=== PATIENT | female | born 1950 | race Caucasian/White ===

== ENCOUNTER → 2023-04-21 06:33 | Outpatient (REF) | payer MEDICARE, OTHER, SELFPAY | LOC: RAD 06:33 | PROVIDERS: ATTENDING PHYSICIAN Internal Medicine | DX: I71.40 Abdominal aortic aneurysm, without rupture, unspecified (principal) | CPT/HCPCS: 76770 ==

== ENCOUNTER 2023-05-24 16:41 | Emergency (ER) | payer MEDICARE, OTHER, SELFPAY ==
[2023-05-24 16:50] VITALS: BP 136/88
[2023-05-24 17:30] LABS: % Basophils 1.3 % (0-2); % Eosinophils 4.1 % (0-6); % Immature Granulocytes 0.1 % (0-0.5); % Monocytes 9.5 % (1.7-9.3); Absolute Basophils 0.1 10^3/uL (0-0.2); Absolute Eosinophils 0.3 10^3/uL (0-0.7); Absolute Lymphocytes 2.1 10^3/uL (1.2-3.4); Absolute Monocytes 0.7 10^3/uL (0.1-0.6); Absolute Neutrophils 3.7 10^3/uL (1.4-6.5); Hemoglobin 14.9 g/dL (12.0-16.0); Mean Corp Hgb Conc. 35.5 g/dL (33.0-37.0); Mean Corpuscular Volume 92.9 fL (81.0-99.0); Mean Platelet Volume 9.5 fL (7.4-10.4); Nucleated Red Blood Cells % 0 %; Platelet Count 297 10^3/uL (130-400); Red Blood Cell Count 4.52 10^6/uL (4.20-5.40); Red Cell Dist. Width 12.2 % (11.5-14.5); White Blood Cell Count 6.8 10^3/uL (4.8-10.8)
[2023-05-24 17:31] LABS: Urine Albumin Negative (Neg - Trace); Urine Bilirubin Negative (Negative); Urine Character Slightly Cloudy (Clear); Urine Color Yellow; Urine Glucose Negative (Negative); Urine Ketone Negative (Negative); Urine Leukocyte 1+ (Negative); Urine Nitrite Negative (Negative); Urine Occult Blood 1+ (Negative); Urine Specific Gravity 1.025 (<1.030); Urine Urobilinogen Negative (Neg - 1+)
[2023-05-24 17:44] LABS: ALT (SGPT) 16 U/L (0-35); AST (SGOT) 22 U/L (14-36); Albumin 4.4 g/dl (3.5-5.0); Alkaline Phosphatase 80 U/L (38-126); Blood Urea Nitrogen 22 mg/dl (7-17); Calcium 9.5 mg/dl (8.4-10.2); Carbon Dioxide 22 mmol/L (22-30); Chloride 108 mmol/L (98-107); Glucose 109 mg/dl (70-99); Potassium 3.9 mmol/L (3.5-5.1); Sodium 136 mmol/L (135-145); Total Bilirubin 0.5 mg/dl (0.2-1.3); Total Protein 7.2 g/dl (6.3-8.2); eGFR > 60.00
[2023-05-24 17:55] LABS: Urine Bacteria Moderate (Negative); Urine Squamous Cell >30 /LPF (Few)
[2023-05-24 18:25] VITALS: BMI 22.4
[2023-05-24 18:29] VITALS: BP 134/68
[2023-05-24 19:00] VITALS: BP 143/62
--- NOTE | 2023-05-24 19:14 | ED.GENMED ---
History of Present Illness
<Latonia Nobles PA-C - Last Filed: 05/27/23 11:07>
General
Chief Complaint: Back Pain
Source: patient
Exam Limitations: none
Time Seen by Provider: 05/24/23 19:05
Nursing documentation reviewed up to this point in time: agreed with
Travel History
Have you had any contact with someone who has COVID-19?: No
Do you have any symptoms of coronavirus? Fever > 100 degrees, chills, cough, shortness of breath, sore throat, loss of taste or smell, muscle aches, or headache?: No
History of Present Illness
History of Present Illness:
73-year-old female with past medical history of hypertension, presenting to the ER today with right-sided back pain that radiates to the right upper and right lower abdominal quadrants. Patient states that her pain started a few days ago and it was
mild, but has been getting progressively worse as the days persisted. Pain is worse with movement. Patient states she nausea with this but no vomiting. Patient has a normal appetite. Patient went to her doctor's office today, where they did a
urinalysis which revealed microscopic hematuria as well as crystals. Patient does not have iman hematuria. Patient does not have dysuria. Patient does not have vomiting. Patient denies dizziness, chest pain, shortness of breath. Patient denies
recent surgeries. Patient denies recent hospitalizations. Patient does take a baby aspirin daily, however takes no anticoagulation.
Past History
<Latonia Nobles PA-C - Last Filed: 05/27/23 11:07>
Past History
ED Past Medical History: CVA (Questionable old CVA seen on previous CT scan), HTN, Valvular disease and Other
ED Past Surgical History: None
Social History
Tobacco: Smoker
Alcohol: None
Drug: None
Personal: Single
Living: with family
Review of Systems
<Latonia Nobles PA-C - Last Filed: 05/27/23 11:07>
Review of Systems
All Other Systems: ROS reviewed and negative except as documented in HPI and ROS
Phy Exam
<Latonia Nobles PA-C - Last Filed: 05/27/23 11:07>
Physical Exam
Physical Exam:
Vitals: Patient vital signs are stable, patient is afebrile
General: Patient is well-appearing no acute distress
Head: Normocephalic, atraumatic
Skin: warm and dry, no rashes or lesions
Cardiac: Regular rate and rhythm, no murmurs
Pulm: Normal respiratory effort
Abdomen: Abdomen soft nontender, no tenderness to palpation. Significant positive CVA tenderness on the right. No palpable masses, no rebound tenderness.
Musculoskeletal: No midline spinal tenderness on the back.
Neuro: CN II-XII intact, AAOx3.
Course
<Latonia Nobles PA-C - Last Filed: 05/27/23 11:07>
Orders/Labs/Results
Orders:
Orders
05/24/23 16:57
Complete Blood Count/With Diff Urgent
Comprehensive Metabolic Panel Urgent
Lipase Urgent
Comment: ADD ON
05/24/23 17:15
Urinalysis Reflex To Culture Urgent
Date Specimen was Collected: 05/24/23
Time Specimen was Collected: 16:53
Urine Microscopic Reflex Cult Urgent
Urine Culture Urgent
SYDNI Source: U
Specimen Description:
Date Specimen was Collected: 05/24/23
Time Specimen was Collected: 16:53
05/24/23 19:10
CT Abd/pel Without Iv Or Oral Urgent
Comment:
Reason For Exam: right flank pain
Ketorolac [Toradol] 15 mg IV NOW STA
Ondansetron Injectable [Zofran] 4 mg IV NOW STA
05/24/23 19:18
0.9% Sodium Chloride 500 ml [Nss] 500 ml IV BOLUS
05/24/23 19:23
Ketorolac [Toradol] 15 mg .ROUTE .STK-MED ONE
Ondansetron Injectable [Zofran] 4 mg .ROUTE .STK-MED ONE
05/24/23 19:57
US Abdomen Limited Urgent
Comment:
Reason For Exam: right uq pain. evaluiate gb
05/24/23 19:58
Add On- LAB Urgent
Tests Added?: lipase
05/24/23 22:38
Dexamethasone Sod Phosphate [Decadron] 4 mg IV NOW STA
Abnormal Lab Results
05/24/23 05/24/23
16:57 17:15
MCH 33.0 H pg
(27.0-31.0)
Absolute Monos (auto) 0.7 H 10^3/uL
(0.1-0.6)
Monocytes % 9.5 H %
(1.7-9.3)
Chloride 108 H mmol/L
(98-107)
BUN 22 H mg/dl
(7-17)
Glucose 109 H mg/dl
(70-99)
Ur Occult Blood Reflex 1+ A
(Negative)
Leukocyte Esterase Rfl 1+ A
(Negative)
Urine RBC 3-6 A /HPF
(0-2)
Urine Bacteria (Reflex) Moderate A
(Negative)
05/24/23 16:57
05/24/23 16:57
Vital Signs
Initial and Last Documented VS:
Initial Vital Signs
Temp Pulse Resp BP Pulse Ox
98.2 F 62 16 136/88 98
05/24/23 16:50 05/24/23 16:50 05/24/23 16:50 05/24/23 16:50 05/24/23 16:50
Last Documented Vital Signs
Temp Pulse Resp BP Pulse Ox
98.2 F 67 20 114/62 96
05/24/23 16:50 05/24/23 22:30 05/24/23 22:30 05/24/23 20:45 05/24/23 22:15
<Servando Zaidi MD - Last Filed: 05/24/23 23:00>
Orders/Labs/Results
Orders:
Orders
05/24/23 16:57
Complete Blood Count/With Diff Urgent
Comprehensive Metabolic Panel Urgent
Lipase Urgent
Comment: ADD ON
05/24/23 17:15
Urinalysis Reflex To Culture Urgent
Date Specimen was Collected: 05/24/23
Time Specimen was Collected: 16:53
Urine Microscopic Reflex Cult Urgent
Urine Culture Urgent
SYDNI Source: U
Specimen Description:
Date Specimen was Collected: 05/24/23
Time Specimen was Collected: 16:53
05/24/23 19:10
CT Abd/pel Without Iv Or Oral Urgent
Comment:
Reason For Exam: right flank pain
Ketorolac [Toradol] 15 mg IV NOW STA
Ondansetron Injectable [Zofran] 4 mg IV NOW STA
05/24/23 19:18
0.9% Sodium Chloride 500 ml [Nss] 500 ml IV BOLUS
05/24/23 19:23
Ketorolac [Toradol] 15 mg .ROUTE .STK-MED ONE
Ondansetron Injectable [Zofran] 4 mg .ROUTE .STK-MED ONE
05/24/23 19:57
US Abdomen Limited Urgent
Comment:
Reason For Exam: right uq pain. evaluiate gb
05/24/23 19:58
Add On- LAB Urgent
Tests Added?: lipase
05/24/23 22:38
Dexamethasone Sod Phosphate [Decadron] 4 mg IV NOW STA
Abnormal Lab Results
05/24/23 05/24/23
16:57 17:15
MCH 33.0 H pg
(27.0-31.0)
Absolute Monos (auto) 0.7 H 10^3/uL
(0.1-0.6)
Monocytes % 9.5 H %
(1.7-9.3)
Chloride 108 H mmol/L
(98-107)
BUN 22 H mg/dl
(7-17)
Glucose 109 H mg/dl
(70-99)
Ur Occult Blood Reflex 1+ A
(Negative)
Leukocyte Esterase Rfl 1+ A
(Negative)
Urine RBC 3-6 A /HPF
(0-2)
Urine Bacteria (Reflex) Moderate A
(Negative)
05/24/23 16:57
05/24/23 16:57
Vital Signs
Initial and Last Documented VS:
Initial Vital Signs
Temp Pulse Resp BP Pulse Ox
98.2 F 62 16 136/88 98
05/24/23 16:50 05/24/23 16:50 05/24/23 16:50 05/24/23 16:50 05/24/23 16:50
Last Documented Vital Signs
Temp Pulse Resp BP Pulse Ox
98.2 F 67 20 114/62 96
05/24/23 16:50 05/24/23 22:30 05/24/23 22:30 05/24/23 20:45 05/24/23 22:15
<Latonia Nobles PA-C - Last Filed: 05/27/23 11:07>
MDM/Problems Addressed
Differential Diagnosis Includes:
Nephrolithiasis, pyelonephritis, cholecystitis, musculoskeletal sprain/strain, renal artery stenosis, renal artery thrombosis, spontaneous retroperitoneal hemorrhage,
MDM/Problems Addressed:
Flank pain, abdominal pain

Will start IV fluids, Toradol, Zofran, reassess. Will obtain CT of the abdomen pelvis
Chronic conditions affecting care: HTN
Acute Exacerbation and/or Progression of Chronic Illness: HTN
<Latonia Nobles PA-C - Last Filed: 05/27/23 11:07>
*Pulse Oximetry
Patient hypoxic: no
*Critical Care Note
Total Time (30-74mins, 75-104mins- exclusive of procedures): Not Applicable
Data Reviewed
Review of Other/Old Records Reveals: Records (Reviewed previous ER record from 03/05/2023) and Discharge Summary (No recent discharge summaries to review )
Source: patient and records
<Latonia Nobles PA-C - Last Filed: 05/27/23 11:07>
Patient Management
Escalation/DeEscalation of care consider admission/obs:
73-year-old female with past medical history of hypertension, presenting to the ER today with right-sided back pain that radiates to the right upper and right lower abdominal quadrants. Patient states that her pain started a few days ago and it was
mild, but has been getting progressively worse as the days persisted. Patient has no fevers or chills, dysuria. Patient obtained outpatient urinalysis for family doctor and was found to have hematuria. As well as crystals. Here emergency
department, patient's vitals are stable, she is afebrile. Patient's CT of the abdomen was negative for any obstructing calculi, and here US of the gallbladder did not show any evidence of cholecystitis.
ED Attending Note
<Latonia Nobles PA-C - Last Filed: 05/27/23 11:07>
-
Portions of this chart may have been created with voice recognition software.� Occasional wrong word or��sound alike� substitutions may have occurred due to the inherent limitations of voice recognition software.
<Servando Zaidi MD - Last Filed: 05/24/23 23:00>
ED Attending Note
Patient seen and examined by attending physician: Yes
I performed the substantive portion of visit, reviewed & personally made and approve the management plan that is documented in note by myself or GRETA.: Yes
ED Attending Note:
73-year-old female complaining of right back pain radiating to the right flank with some nausea. Had some blood in her urine. Has a history of low back pain that responded well to a Medrol Dosepak. That seemed to resolve but returned today with
doing some lifting earlier. No abdominal pain no fever no urinary symptoms no change in bowels.
GENERAL: Alert and oriented in no apparent distress
CARDIAC: Regular rate and rhythm without any obvious murmurs.
LUNGS: Clear breath sounds,normal
ABDOMEN: Soft, very minimal tenderness under the right lateral rib. No right upper quadrant tenderness. No epigastric tenderness. No rebound or guarding no mass or hernia. No CVA tenderness.
NEUROLOGICAL: Alert and oriented , grossly non-focal
SKIN: Warm and dry, no rash or lesion, no discoloration, skin intact.
MUSCULOSKELETAL: No edema,no deformity.Good color. He clearly is in pain with low back with sitting up
PSYCH: Normal and appropriate interaction.
Workup including evaluation of gallbladder kidney stones any infectious issue all negative. Neurologically stable. Ambulated to the bathroom without difficulty. Do not feel this is a pulmonary emboli. She has no shortness of breath or pleuritic
pain. Do not feel this is a dissection she is in no distress and has equal pulses. She does have a mildly positive urine although it appears contaminated. With her multiple medication allergies and antibiotic allergies we will not treat this
presumptively but wait for urine culture. She is comfortable with this approach. Request steroids for her low back which she says responds well
Discharge Plan
Departure
Patient Disposition: Home (Routine Discharge)
Date of Disposition: 05/24/23
Time of Disposition: 22:40
Patient with high blood pressure during this ER visit?: No
Discharge Problem:
Back pain
Instructions: Low Back Pain (DC), Upper Back Pain (DC), BLOOD PRESSURE
Prescriptions:
New
methylprednisolone [Medrol (Thierry)] 4 mg tablets,dose pack
4 mg PO DAILY Qty: 21 0RF
No Action
nadolol 40 MG tablet
40 mg PO DAILY
amlodipine 5 mg Tablet
5 mg PO DAILY
aspirin 81 mg Tablet
81 mg PO DAILY
cholecalciferol (vitamin D3) [Vitamin D3] 25 mcg (1,000 unit) Capsule
25 mcg PO DAILY
diazepam [Valium] 5 mg tablet
5 mg PO BID PRN (Reason: muscle spasm) Qty: 10 0RF
Referrals:
Santiago Prajapati Jr., DO [Family Provider] - Follow up in 2-3 days
Activity Restrictions/Additional Instructions:
Tylenol for pain
Recheck with increasing pain fever abdominal pain or any other concerning symptoms
Interventions
Interventions:
*Risk Screen - Suicide Last Done: 05/24/23 18:24
*General Assessment Last Done: 05/24/23 18:25
*Neglect/Abuse Screening Last Done: 05/24/23 18:24
ED- Fall Risk Assessment Last Done: 05/24/23 22:53
*ED COVID-19 Vaccine History Last Done: 05/24/23 16:50
*Nursing Disposition Last Done: 05/24/23 22:53
ED-Musculoskeletal Assessment Last Done: 05/24/23 18:21
Discharge Date and Time
Discharge Date/Time: 05/24/23 22:54
[2023-05-24] MEDS: TORADOL 15 MG IV (19:25)
[2023-05-24] MEDS: ZOFRAN 4 MG IV (19:25)
[2023-05-24] MEDS: NSS 500 IV (19:27)
--- NOTE | 2023-05-24 19:31 | EDRN ---
assisting primary RN. this RN entered room, informed pt I was an assisting RN and that I was here to medicate her. pt immediately yelling and cursing at this RN about wait time for CT and meds. pt medicated per mar, updated on lab and urine results.
pt remains on monitor, fluids infusing.
[2023-05-24 20:45] VITALS: BP 114/62
[2023-05-24 20:49] LABS: Lipase 113 U/L (23-300)
[2023-05-24] MEDS: DECADRON 4 MG IV (22:46)
== END 2023-05-24 22:54 | disposition home or self-care (01) ==
LOC: EMR 16:41
PROVIDERS: EMERGENCY PHYSICIAN Emergency Medicine; FAMILY PHYSICIAN Family Medicine
DX: M54.9 Dorsalgia, unspecified (principal); M54.50 Low back pain, unspecified; F17.200 Nicotine dependence, unspecified, uncomplicated; I10 Essential (primary) hypertension
CPT/HCPCS: 99285; 96374; 96375; 96361; 74176; 76705; 80053; 81003; 81015; 83690; 85025; 87086

== ENCOUNTER → 2023-06-02 16:35 | Outpatient (REF) | payer MEDICARE, OTHER, SELFPAY | LOC: RAD 16:35 | PROVIDERS: ATTENDING PHYSICIAN Internal Medicine; FAMILY PHYSICIAN Family Medicine | DX: R07.9 Chest pain, unspecified (principal); M54.9 Dorsalgia, unspecified; R11.0 Nausea | CPT/HCPCS: 72072 ==

== ENCOUNTER → 2023-12-24 18:11 | Outpatient (REF) | payer MEDICARE, OTHER, SELFPAY | LOC: WDC 18:11 | PROVIDERS: ATTENDING PHYSICIAN Family Medicine | DX: Z12.31 Encounter for screening mammogram for malignant neoplasm of breast (principal) | CPT/HCPCS: 77063; 77067 ==

== ENCOUNTER → 2024-01-07 08:07 | Outpatient (REF) | payer MEDICARE, OTHER, SELFPAY | LOC: RCS 08:07 | PROVIDERS: ATTENDING PHYSICIAN Nuclear Medicine Nuclear Cardiology; FAMILY PHYSICIAN Family Medicine | DX: I63.9 Cerebral infarction, unspecified (principal); Q23.1 Congenital insufficiency of aortic valve; I35.1 Nonrheumatic aortic (valve) insufficiency | CPT/HCPCS: 93306 ==

== ENCOUNTER 2024-01-16 15:41 | Emergency (ER) | payer MEDICARE, OTHER, SELFPAY ==
[2024-01-16 15:43] VITALS: BP 137/70
[2024-01-16 16:48] VITALS: BP 101/56
[2024-01-16 16:54] VITALS: BP 101/65; BMI 23.2
--- NOTE | 2024-01-16 16:54 | ED.GENMED ---
History of Present Illness
General
Chief Complaint: Fall
Source: patient
Exam Limitations: none
Time Seen by Provider: 01/16/24 16:53
Nursing documentation reviewed up to this point in time: agreed with
History of Present Illness
History of Present Illness:
73-year-old female with history CVA, HTN, HLD presents stating she fell 2 days ago, has facial injuries, questionable seizure activity at time of fall, and was evaluated at [facility] and started on Keppra 500 mg BID. She went to her PCP Sarahy
Anastasiya today and PCP was unable to obtain result of head CT. PCP texted pt is confuse, forgetful, mild headache and sending in to r/o head bleed.
Past History
Past History
ED Past Medical History: CVA (Questionable old CVA seen on previous CT scan), HTN and Valvular disease
ED Past Surgical History: None
Social History
Tobacco: Smoker
Alcohol: Occasional
Drug: None
Personal: Single
Living: alone
Employment: Employed
Review of Systems
Review of Systems
Allergies reviewed?: Yes
All Other Systems: ROS reviewed and negative except as documented in HPI and ROS
Constitutional: Denies fever
EENT: Reports other (swelling and bruising around left eye. Sutures intact left forehead)
Respiratory: Denies trouble breathing
Cardiac: Denies chest pain
ABD/GI: Denies abdominal pain, nausea or vomiting
: Denies dysuria or difficulty voiding
Musculoskeletal: Denies neck pain or back pain
Skin: Reports other (Bruising around left eye, sutures intact left forehead)
Neurological: Reports no symptoms
Phy Exam
Physical Exam
Physical Exam:
GENERAL: No acute distress. A&Ox3.
CONSTITUTIONAL: Afebrile.
EYES: PERRL, large left subconjunctival hemorrhage. Left periorbital ecchymosis and moderate swelling inferiorly. EOMs intact.
Neck: Supple
ENMT: moist mucus membranes, Pharynx nl
RESPIRATORY: Regular respirations, nonlabored, lungs clear.
CARDIOVASCULAR: Regular rate and rhythm, no murmurs, no rubs.
GI: Soft, nontender, normal BS
MUSCULOSKELETAL: Moves with ease. Well perfused.
SKIN: Warm, dry, pink,
PSYCH: Normal mood and affect. Well kept, interactive and appropriate
NEUROLOGIC: Awake, alert and oriented. Cranial nerves II through XII intact. No focal neurological deficits
Course
Orders/Labs/Results
Orders:
Orders
01/16/24 16:54
CT Head W/o Iv Contrast Urgent
Comment:
Reason For Exam: fall 2 d ago, facial injuries, headache
01/16/24 17:13
Facial Bones wo Contrast CT [CT Facial Bones W/o Iv Contras] Urgent
Comment:
Reason For Exam: fall, L orbit injury
Vital Signs
Initial and Last Documented VS:
Initial Vital Signs
Temp Pulse Resp BP Pulse Ox
98.1 F 66 16 137/70 99
01/16/24 15:43 01/16/24 15:43 01/16/24 15:43 01/16/24 15:43 01/16/24 15:43
Last Documented Vital Signs
Temp Pulse Resp BP Pulse Ox
98.1 F 85 16 124/64 99
01/16/24 15:43 01/16/24 18:02 01/16/24 18:02 01/16/24 18:02 01/16/24 18:02
MDM/Problems Addressed
Differential Diagnosis Includes:
ICH, facial bone fracture.
MDM/Problems Addressed:
Room [id number] female with history CVA, HTN, HLD presents stating she fell 2 days ago, has facial injuries, questionable seizure activity at time of fall, and was evaluated at [facility] and started on Keppra 500 mg BID. She went to her PCP
[employer] Sarahy Langford today and PCP was unable to obtain result of head CT. PCP texted pt is confused, forgetful, mild headache, concern for ICH.
Pt presents pleasant, A&O x3, denies headache, just pain around left orbit which is moderately swollen, ecchymotic and tender. Denies change in vision. Denies n/v. Not anticoagulated. She does not recall the incident. She left [place] prior to
discharge because the doctor got her confused with another patient and was telling her she has liver cirrhosis so she did not want to stay.
6:[address] head and facial bones radiology report read: IMPRESSION:
No acute intracranial abnormality. Small left frontal scalp hematoma. Left periorbital and premaxillary soft tissue swelling. No CT evidence for an acute facial bone fracture.
Pt stable for discharge.
Neuro exam is normal.
*Critical Care Note
Total Time (30-74mins, 75-104mins- exclusive of procedures): Not Applicable
ED Attending Note
-
Portions of this chart may have been created with voice recognition software.� Occasional wrong word or��sound alike� substitutions may have occurred due to the inherent limitations of voice recognition software.
Discharge Plan
Departure
Patient Disposition: Home (Routine Discharge)
Date of Disposition: 01/16/24
Time of Disposition: 18:19
Patient with high blood pressure during this ER visit?: No
Condition: Good
Discharge Problem:
Facial contusion, Head injury, Fall
Instructions: Head Injury in Adults (DC), Contusion (DC)
Prescriptions:
No Action
nadolol 40 MG tablet
40 mg PO DAILY
amlodipine 5 mg Tablet
5 mg PO DAILY
aspirin 81 mg Tablet
81 mg PO DAILY
cholecalciferol (vitamin D3) [Vitamin D3] 25 mcg (1,000 unit) Capsule
25 mcg PO DAILY
diazepam [Valium] 5 mg tablet
5 mg PO BID PRN (Reason: muscle spasm) Qty: 10 0RF
methylprednisolone [Medrol (Thierry)] 4 mg tablets,dose pack
4 mg PO DAILY Qty: 21 0RF
Referrals:
Santiago Prajapati Jr., DO [Active] - As needed
Aaron Howard, DO [Family Provider] - None
Activity Restrictions/Additional Instructions:
As we discussed, your head and facial CT's show nothing worrisome.
Interventions
Interventions:
*Risk Screen - Suicide Last Done: 01/16/24 16:54
*General Assessment Last Done: 01/16/24 16:54
*Neglect/Abuse Screening Last Done: 01/16/24 16:54
ED- Fall Risk Assessment Last Done: 01/16/24 16:54
*ED COVID-19 Vaccine History Last Done: 01/16/24 16:54
*Nursing Disposition Last Done: 01/16/24 18:36
ED-Musculoskeletal Assessment Last Done: 01/16/24 16:54
ED- Neurological Assessment Last Done: 01/16/24 16:54
ED-Skin Assessment Last Done: 01/16/24 16:54
Discharge Date and Time
Discharge Date/Time: 01/16/24 18:37
Print Language: LAO
[2024-01-16 17:00] VITALS: BP 104/70
[2024-01-16 18:00] VITALS: BP 124/64
[2024-01-16 18:02] VITALS: BP 124/64
== END 2024-01-16 18:37 | disposition home or self-care (01) ==
LOC: EMR 15:41
PROVIDERS: EMERGENCY PHYSICIAN Emergency Medicine; FAMILY PHYSICIAN Anesthesiology
DX: S00.03XA Contusion of scalp, initial encounter (principal); S09.90XA Unspecified injury of head, initial encounter; W19.XXXA Unspecified fall, initial encounter; F17.200 Nicotine dependence, unspecified, uncomplicated; I10 Essential (primary) hypertension; E78.00 Pure hypercholesterolemia, unspecified; K74.60 Unspecified cirrhosis of liver; Z86.73 Personal history of transient ischemic attack (TIA), and cerebral infarction without residual deficits
CPT/HCPCS: 99284; 70450; 70486

== ENCOUNTER → 2024-02-27 07:29 | Outpatient (REF) | payer MEDICARE, OTHER, SELFPAY ==
[2024-02-27 09:08] LABS: % Basophils 1.1 % (0-2); % Eosinophils 6.2 % (0-6); % Lymphocytes 33.1 % (20.5-51.1); % Monocytes 11.9 % (1.7-9.3); % Neutrophils 47.7 % (42.2-75.2); Absolute Basophils 0.1 10^3/uL (0-0.2); Absolute Eosinophils 0.3 10^3/uL (0-0.7); Absolute Lymphocytes 1.5 10^3/uL (1.2-3.4); Absolute Monocytes 0.5 10^3/uL (0.1-0.6); Absolute Neutrophils 2.2 10^3/uL (1.4-6.5); Hematocrit 43.7 % (37.0-47.0); Hemoglobin 14.9 g/dL (12.0-16.0); Mean Corp Hgb Conc. 34.1 g/dL (33.0-37.0); Mean Corpuscular Hgb 33.4 pg (27.0-31.0); Mean Platelet Volume 9.6 fL (7.4-10.4); Nucleated Red Blood Cells % 0 %; Platelet Count 268 10^3/uL (130-400); Red Blood Cell Count 4.46 10^6/uL (4.20-5.40); Red Cell Dist. Width 11.9 % (11.5-14.5); White Blood Cell Count 4.5 10^3/uL (4.8-10.8)
[2024-02-27 09:14] LABS: ALT (SGPT) 16 U/L (0-35); AST (SGOT) 21 U/L (14-36); Albumin 4.7 g/dl (3.5-5.0); Alkaline Phosphatase 87 U/L (38-126); Blood Urea Nitrogen 17 mg/dl (7-17); Calcium 9.9 mg/dl (8.4-10.2); Carbon Dioxide 29 mmol/L (22-30); Chloride 104 mmol/L (98-107); Glucose 94 mg/dl (70-99); HDL Cholesterol 44 mg/dl; LDL Cholesterol, Calculated 164 mg/dl; Potassium 4.6 mmol/L (3.5-5.1); Sodium 141 mmol/L (135-145); Total Bilirubin 0.5 mg/dl (0.2-1.3); Total Cholesterol 248 mg/dl (50-199); Total Protein 7.5 g/dl (6.3-8.2); Triglyceride 202 mg/dl (10-149); Very Low Density Lipoprotein 40 mg/dl (0-30); eGFR > 60.00
[2024-02-27 09:27] LABS: Vitamin D, 25-OH*** 41.6 ng/mL (30-80)
[2024-02-27 09:41] LABS: TSH Reflex To Free T4 2.49 uIU/ml (0.47-4.68)
[2024-02-27 10:00] LABS: Vitamin B12 654 pg/ml (239-931)
== END ==
LOC: RAD 07:29
PROVIDERS: ATTENDING PHYSICIAN Family Medicine
DX: Z78.0 Asymptomatic menopausal state (principal); M85.89 Other specified disorders of bone density and structure, multiple sites; Z13.820 Encounter for screening for osteoporosis; R53.83 Other fatigue; Z13.6 Encounter for screening for cardiovascular disorders; E55.9 Vitamin D deficiency, unspecified; E53.8 Deficiency of other specified B group vitamins
CPT/HCPCS: 36415; 80053; 80061; 82306; 82607; 84443; 85025

== ENCOUNTER → 2024-05-07 13:42 | Outpatient (REF) | payer MEDICARE, OTHER, SELFPAY | LOC: RAD 13:42 | PROVIDERS: ATTENDING PHYSICIAN Psychiatry & Neurology Neurology; FAMILY PHYSICIAN Family Medicine | DX: I63.9 Cerebral infarction, unspecified (principal) | CPT/HCPCS: 70496; 70498; Q9967 ==

== ENCOUNTER → 2024-05-19 07:19 | Outpatient (REF) | payer MEDICARE, OTHER, SELFPAY | LOC: RAD 07:19 | PROVIDERS: ATTENDING PHYSICIAN Psychiatry & Neurology Neurology; FAMILY PHYSICIAN Family Medicine | DX: I65.21 Occlusion and stenosis of right carotid artery (principal) | CPT/HCPCS: 93880 ==

== ENCOUNTER 2024-08-30 16:05 | Inpatient (IN) | payer MEDICARE, OTHER, SELFPAY ==
[2024-08-30] VITALS (7 sets, daily range): BP systolic 111–158; BP diastolic 57–74; BMI 23.9; BMI 22.5
[2024-08-30] MEDS: ZOFRAN 4 MG IV (11:33)
--- NOTE | 2024-08-30 11:34 | ED.GENMED ---
History of Present Illness
General
Chief Complaint: Abdominal Pain
Source: patient
Exam Limitations: none
Time Seen by Provider: 08/30/24 11:10
History of Present Illness
History of Present Illness:
74-year-old female presents complaining of mid abdominal pain intermittently over the past week. Sharp in nature does not radiate to the back or chest. She is nauseous anytime she eats anything. There has been no vomiting. She tried Dulcolax as
she has not had a bowel movement in about a week and she had a loose stool which helped her symptoms temporarily but her pain is returned. No fevers. No prior abdominal surgical history other than appendix as a child. She denies regular use of
NSAIDs or alcohol but does drink 3 cups of coffee a day.
Past History
Past History
ED Past Medical History: CVA (Questionable old CVA seen on previous CT scan), HTN and Valvular disease
ED Past Surgical History: None
Social History
Tobacco: Smoker
Alcohol: Occasional
Drug: None
Personal: Single
Living: alone
Employment: Employed
Phy Exam
Physical Exam
Physical Exam:
General: Well-appearing female no acute respiratory distress
HEENT: Normocephalic atraumatic
: Regular rate and rhythm no murmurs
Lungs: Clear no wheeze
Abdomen soft tender to the epigastric region mild guarding no rebound tenderness nondistended no costovertebral angle
Extremities: No cyanosis
Course
Orders/Labs/Results
Orders:
Orders
08/30/24 11:20
Complete Blood Count/With Diff Urgent
Comprehensive Metabolic Panel Urgent
Lipase Urgent
08/30/24 11:29
CT Abd/pelvis W Iv Cont Urgent
Comment:
Reason For Exam: abdominal pain
Ondansetron Injectable [Zofran] 4 mg IV NOW STA
08/30/24 11:33
Diphenhydramine [Benadryl] 50 mg IV NOW STA
Hydrocortisone Sod Succinate [Solu-Cortef] 200 mg IV NOW STA
08/30/24 14:50
Pantoprazole [Protonix IV] 80 mg IV NOW STA
Abnormal Lab Results
08/30/24
11:20
MCH 32.8 H pg
(27.0-31.0)
Monocytes % 9.8 H %
(1.7-9.3)
Glucose 114 H mg/dl
(70-99)
08/30/24 11:20
08/30/24 11:20
Vital Signs
Initial and Last Documented VS:
Initial Vital Signs
Temp Pulse Resp BP Pulse Ox
98.3 F 77 18 133/74 98
08/30/24 10:05 08/30/24 10:05 08/30/24 10:05 08/30/24 10:05 08/30/24 10:05
Last Documented Vital Signs
Temp Pulse Resp BP Pulse Ox
98.3 F 62 17 158/62 97
08/30/24 10:05 08/30/24 12:45 08/30/24 12:45 08/30/24 12:00 08/30/24 12:45
MDM/Problems Addressed
Differential Diagnosis Includes:
Abdominal pain. Consider gastritis for his peptic ulcer disease versus constipation versus biliary colic pancreatitis
Check labs. Lipase pending. CT ordered. Patient has an IV contrast dye allergy. She gets a rash. Will pretreat. Zofran ordered
*Pulse Oximetry
SaO2: 100
Oxygen Mode of Delivery: Room air
Patient hypoxic: no
*Critical Care Note
Total Time (30-74mins, 75-104mins- exclusive of procedures): Not Applicable
Update Note
Update Note:
CT demonstrates erosion of the distal gastric lining to suggest 2 ulcerations versus microperforations. Protonix ordered. Discussed with the emergency room attending. Admit to hospital GI team made aware as well
ED Attending Note
-
Portions of this chart may have been created with voice recognition software.� Occasional wrong word or��sound alike� substitutions may have occurred due to the inherent limitations of voice recognition software.
Discharge Plan
Departure
Patient Disposition: Admit
Date of Disposition: 08/30/24
Time of Disposition: 14:51
Presentation/result/management discussed w/ accepting MD/DO: Hospitalist
Discharge Problem:
Gastric ulcer
Prescriptions:
No Action
nadolol 40 MG tablet
40 mg PO DAILY
amlodipine 5 mg Tablet
5 mg PO DAILY
aspirin 81 mg Tablet
81 mg PO DAILY
cholecalciferol (vitamin D3) [Vitamin D3] 25 mcg (1,000 unit) Capsule
25 mcg PO DAILY
diazepam [Valium] 5 mg tablet
5 mg PO BID PRN (Reason: muscle spasm) Qty: 10 0RF
methylprednisolone [Medrol (Thierry)] 4 mg tablets,dose pack
4 mg PO DAILY Qty: 21 0RF
Referrals:
Santiago Prajapati Jr., DO [Family Provider, Internal Medicine]
Interventions
Interventions:
*Risk Screen - Suicide Last Done: 08/30/24 11:23
*General Assessment Last Done: 08/30/24 11:23
*Neglect/Abuse Screening Last Done: 08/30/24 11:23
*ED- Fall Risk Assessment Last Done: 08/30/24 11:23
*ED COVID-19 Vaccine History Last Done: 08/30/24 11:23
BL-Ospgyk-Tpoylttjeb Assessment Last Done: 08/30/24 11:23
Discharge Date and Time
Print Language: [id number]
[2024-08-30 11:36] LABS: % Basophils 0.7 % (0-2); % Eosinophils 3.6 % (0-6); % Immature Granulocytes 0.2 % (0-0.5); % Lymphocytes 24.5 % (20.5-51.1); % Monocytes 9.8 % (1.7-9.3); % Neutrophils 61.2 % (42.2-75.2); Absolute Eosinophils 0.2 10^3/uL (0-0.7); Absolute Lymphocytes 1.5 10^3/uL (1.2-3.4); Absolute Monocytes 0.6 10^3/uL (0.1-0.6); Absolute Neutrophils 3.7 10^3/uL (1.4-6.5); Hematocrit 40.2 % (37.0-47.0); Hemoglobin 14.3 g/dL (12.0-16.0); Mean Corp Hgb Conc. 35.6 g/dL (33.0-37.0); Mean Corpuscular Hgb 32.8 pg (27.0-31.0); Mean Corpuscular Volume 92.2 fL (81.0-99.0); Mean Platelet Volume 9.1 fL (7.4-10.4); Nucleated Red Blood Cells % 0 %; Platelet Count 240 10^3/uL (130-400); Red Blood Cell Count 4.36 10^6/uL (4.20-5.40); Red Cell Dist. Width 12.1 % (11.5-14.5)
[2024-08-30] MEDS: SOLU-CORTEF 200 MG IV (11:38)
[2024-08-30] MEDS: BENADRYL 50 MG IV (11:38)
[2024-08-30 12:41] LABS: ALT (SGPT) 13 U/L (0-35); AST (SGOT) 15 U/L (14-36); Albumin 4.2 g/dl (3.5-5.0); Alkaline Phosphatase 90 U/L (38-126); Blood Urea Nitrogen 13 mg/dl (7-17); Calcium 9.6 mg/dl (8.4-10.2); Carbon Dioxide 26 mmol/L (22-30); Chloride 107 mmol/L (98-107); Estimated Creatinine Clearance 79 ml/min; Glucose 114 mg/dl (70-99); Lipase 128 U/L (23-300); Potassium 3.9 mmol/L (3.5-5.1); Sodium 138 mmol/L (135-145); Total Bilirubin 0.7 mg/dl (0.2-1.3); Total Protein 6.8 g/dl (6.3-8.2); eGFR > 60.00
--- NOTE | 2024-08-30 15:07 | HPS.HSE ---
Family Physician
-
Family Physician: Santiago Prajapati Jr.
Chief Complaint
-
abdominal pain
History of Present Illness
Patient is a 74-year-old female with past medical history significant for hypertension presented to [facility] ED for evaluation of mid upper abdominal pain. Patient reports that symptoms started last and has been intermittent since onset. She
describes pain as sharp in nature and nonradiating. Patient reports seeing Dr. Curry today for follow up of known AAA and after describing her discomfort he requested she come to ED for evaluation. She reports since onset appetite has been minimal,
does not report worsening with eating. She did utilize laxatives and had some improvement but pain returned. She stated she had not had a bowel movement in 1 week, used laxative and had loose stool. Patient reports high stress in personal and work
life, drinks large amounts of caffeine daily. Denies any fever, chills, nausea or vomiting.
Medical History
Past Medical History
Past Medical History: Reports Other
Additional Past Medical History:
hypertension
valvular disease
seizure??
Past Surgical History: Reports Other
Additional Past Surgical History:
appendectomy
ovarian cyst as adolescent
Social History
Tobacco: Former Smoker ('quit few years ago')
Alcohol: None
Drug: None
Living: Alone
Employment: Employed
Family History
Family History: Not pertinent
Allergies / Home Medications
Allergies reflects when Allergies were last updated in [employer].
Home Medications with original date entered in [employer]
Allergy/Medication List:
Allergies
Allergy/AdvReac Type Severity Reaction Status Date / Time
azithromycin (From Zithromax) Allergy Hives Verified 01/16/24 15:53
cefaclor Allergy Hives Verified 01/16/24 15:53
clindamycin Allergy Hives Verified 01/16/24 15:53
Iodinated Contrast Media Allergy Rash Verified 11/08/24 15:53
(Iodinated Contrast- Oral
and IV Dye)
levofloxacin (From Levaquin) Allergy Hives Verified 01/16/24 15:53
Penicillins Allergy Hives Verified 01/16/24 15:53
[id number] Reductase Allergy Pharmacy Verified 01/16/24 15:53
Inhibitor to Review
Sulfa (Sulfonamide Allergy Hives Verified 01/16/24 15:53
Antibiotics)
tetracycline (Tetracycline) Allergy Hives Verified 01/16/24 15:53
CATS Allergy SNEEZING Uncoded 01/16/24 15:53
most antibiotics Allergy hives, Uncoded 01/16/24 15:53
welts
Home Medications
nadolol 40 mg tablet 40 mg PO DAILY 04/01/10
amlodipine 5 mg tablet 5 mg PO DAILY 11/20/22
cholecalciferol (vitamin D3) 25 mcg (1,000 unit) capsule (Vitamin D3) 25 mcg PO DAILY 11/20/22
acetaminophen 500 mg tablet (Tylenol Extra Strength) 500 mg PO Q6H PRN mild pain 08/30/24
aspirin 81 mg tablet,delayed release 81 mg PO DAILY 08/30/24
bisacodyl 5 mg tablet,delayed release (Dulcolax (bisacodyl)) 5 mg PO HS PRN constipation 08/30/24
levetiracetam 500 mg tablet 500 mg PO Q12H 08/30/24
Review of Systems
-
History Source: Patient
Abdomen/GI: Reports Abdominal Pain
Physical Exam
Vital Signs
Vital Signs
Temp Pulse Resp BP Pulse Ox
98.3 F 62 17 158/62 97
08/30/24 10:05 08/30/24 12:45 08/30/24 12:45 08/30/24 12:00 08/30/24 12:45
Physical Exam
General: Well Developed, Well Nourished, No Apparent Distress and Conversant
HEENT: NormoCephalic, Moist mucous membranes, Atraumatic, Ears Appear Normal and Hearing Impaired
Respiratory: Clear
Cardiac: S1/S2 and Regular Rhythm
Breast: Deferred by me
GI: Soft, Non Distended, Normal Bowel Sounds and Tender (mildly )
Rectal: Deferred by Provider
Genito-urinary: Deferred by me
Musculoskeletal: No Clubbing, No Cyanosis and No Edema
Skin: Warm and IV/Catheter Site
Neuro: Awake, Alert, AO x 3 and Nonfocal/grossly intact
Psych: Intact Judgment/Insight
Laboratory Results
-
08/30/24 11:20
08/30/24 11:20
Laboratory Results
Total Bilirubin 0.7 mg/dl (0.2-1.3) 08/30/24 11:20
AST 15 U/L (14-36) 08/30/24 11:20
ALT 13 U/L (0-35) 08/30/24 11:20
Alkaline Phosphatase 90 U/L (38-126) 08/30/24 11:20
Lipase 128 U/L (23-300) 08/30/24 11:20
Data Reviewed
-
CT Scan: Report Reviewed by me (Abd/Pel: Distal body and antral gastric wall thickening. Findings suspicious for 2 gastric ulcerations versus contained perforations. No free air. No upper abdominal free fluid or focal collection/abscess. No bowel
obstruction. No obstructive uropathy. Incidental hepatic and renal cysts. Infrare)
Lab Data: Labs Reviewed by me
Impression/Plan
-
IMPRESSION/PLAN:
#abdominal pain 2/2 two gastric ulcerations vs contained perforations
Abd/Pel CT: Distal body and antral gastric wall thickening. Findings suspicious for 2 gastric ulcerations versus contained perforations. No free air. No upper abdominal free fluid or focal collection/abscess.
No bowel obstruction.
No obstructive uropathy.
Incidental hepatic and renal cysts. Infrarenal abdominal aortic aneurysm measuring 3 cm, previous measuring 2.8 cm.
- Admit to med/surg
- Consult GI
- Consult Surgery
- IV Protonix gtt
- IVF NSS 80cc/hr
- IV antibiotics aztreonam and metronidazole
#hypertension
- hold amlodipine and nadolol while strict NPO
#seizure??
- continue levetiracetam via IV while strict NPO
Code status: full code
DVT Prophylaxis: SCDs
--- NOTE | 2024-08-30 15:18 | W.PN.UPDATE ---
Update Note
Progress Note Update
This note serves as an addendum to the H&P by emergency registrar GRETA Luz Hernandez
HPI
74M smoker seen at ER
- acute mid sharp abdominal pain intermittently over the past week.
- no radiation to back
- nausea with eating
- denied vomiting
- took Dulcolax as she has not had a bowel movement in about a week
- temporarily helped by BM but pain treturn
- taking NSAIDs this week for abdominal pain
PHX: CVA (Questionable old CVA seen on previous CT scan), HTN and Valvular disease
Vital Signs
Temp Pulse Resp BP Pulse Ox
98.3 F 62 17 158/62 97
08/30/24 10:05 08/30/24 12:45 08/30/24 12:45 08/30/24 12:00 08/30/24 12:45
PE
General: Well-appearing female no acute respiratory distress
HEENT: Normocephalic atraumatic
: Regular rate and rhythm no murmurs
Lungs: Clear no wheeze
Abdomen soft tender to the epigastric region mild guarding no rebound tenderness nondistended no costovertebral angle
Extremities: No cyanosis
Relevant Data
02/27/24 08/30/24
07:58 11:20
WBC 4.5 L 6.0
Hgb 14.9 14.3
Plt Count 240
BUN 13
Creatinine 0.6
eGFR > 60.00
AST 15
ALT 13
[address] 128
[address] Abd/pelvis W Iv Cont
- Distal body and antral gastric wall thickening.
- Findings suspicious for 2 gastric ulcerations versus contained perforations.
- No free air. No upper abdominal free fluid or focal collection/abscess.
- No bowel obstruction.
- No obstructive uropathy.
- Incidental hepatic and renal cysts. Infrarenal abdominal aortic aneurysm measuring 3 cm, previous measuring 2.8 cm.
Last hospitalist admission:
ASSESSMENT & PLAN
Pending Rx reconciliation
CT suggest two Darby vs. contained perforations.
No free air. No upper abdominal free fluid or focal collection/abscess
HX Multi ABx allegy
- strict NPO and IVF NS
- PPI gtt
- Empiric IV aztreonam and IV Metronidazole
- PRN Narcotic Analgesia
- Urgent GI and GS consulted
HX CVA (Questionable old CVA seen on previous CT scan)
Essential HTN and Valvular disease
DVT Px: SCD
Full code
IP MS
--- NOTE | 2024-08-30 15:25 | CON.GI ---
Addendum entered and electronically signed by Elpidio Hernandez MD 08/30/24 16:37:
I saw and examined the patient.
The MEDICAL INSTRUMENT TECHNICIAN's note was reviewed and I agree with the note.
-- Epigastric abdominal pain
CT abd/pel -Distal body and antral gastric wall thickening. Findings suspicious for two gastric ulcerations versus contained perforations. No free air. No upper abdominal free fluid or focal collection/abscess.
plan
Labs no leukocytosis. Hb 14.3
Case discussed with general surgery�Dr. Coates
N.p.o.
IVF
Continue Protonix drip
Continue empirical antibiotic started by medical team
Monitor clinically With serial abdominal exam
will hold off on EGD
Upper GI series in 3 days as per surgery
Original Note:
Consultation
-
Date/Time Consultation Requested: 08/30/24 1430
Date/Time Consultation Performed: 08/30/24 1430
Requesting Provider: Dr. Loza
Medical History
Chief Complaint / HPI
Chief Complaint: abd pain
History of Present Illness:
74 y/o famle with PMH seizure, CVA, HTN, HLD, ROBERTH who presents to the ER with approx 1 week hx of epigastric pain. She states that the pain would wake her up in the middle of the night, sharp, lasted the entire night. At first she told me that she
was taking Advil for the pain but later told Surgery that she took Tylenol. She is on ASA 81 mg daily. She states that she was not not having normal BMs. The pain persisted so on she went to the pharmacy and she states the pharmacist told
her to 'stop her statin and take Dulcolax'. She states that she took this and that on Friday she had a 'dark loose stool'. The pain in the night persisted. She tool another Dulacolax on Friday. By Friday she was unable to eat. She has not had a BM
since then. She denies any F, C, V, hematochezia, dysphagia or odynophagia, no prior early satiety or unintentional weight loss. She denies any hx of heartburn or reflux. She denies any tobacco or ETOH at present. CT scan of abd/pelvis with IV
contrast shows Circumferential asymmetric wall thickening involving the gastric antrum and distal body measuring up to 2 cm in thickness along the ventral margin. There are 2 foci of gas identified extending beyond the gastric lumen into the
thickened wall along the anterior margin of the distal gastric body measuring 1.3 cm (image 33 series 201), and along the anterior margin of the gastric antrum measuring up to 1.5 cm (image 31 series 201). Ulcers versus contained perforations. We
are asked to evaluate for the same. Patient denies any prior hx of GI complaints.
Past Medical History
Past Medical History: Other (seizure, CVA, HTN, HLD, ROBERTH)
Past Surgical History: Other (ex lap)
Social History
Tobacco: Former Smoker
Alcohol: None
Drug: None
Employment: Employed
Family History
Family History: Other ('unknown family hx')
Allergies / Home Medications
Allergy/AdvReac Type Severity Reaction Status Date / Time
azithromycin (From Zithromax) Allergy Hives Verified 01/16/24 15:53
cefaclor Allergy Hives Verified 01/16/24 15:53
clindamycin Allergy Hives Verified 01/16/24 15:53
Iodinated Contrast Media Allergy Rash Verified 01/16/24 15:53
(Iodinated Contrast- Oral
and IV Dye)
levofloxacin (From Levaquin) Allergy Hives Verified 01/16/24 15:53
Penicillins Allergy Hives Verified 01/16/24 15:53
Fyopaax-KNR-TyQ Reductase Allergy Pharmacy Verified 01/16/24 15:53
Inhibitor to Review
Sulfa (Sulfonamide Allergy Hives Verified 01/16/24 15:53
Antibiotics)
tetracycline (Tetracycline) Allergy Hives Verified 01/16/24 15:53
CATS Allergy SNEEZING Uncoded 01/16/24 15:53
most antibiotics Allergy hives, Uncoded 01/16/24 15:53
welts
�Medication �Instructions �Recorded
nadolol 40 mg tablet 40 mg PO DAILY 04/01/10
amlodipine 5 mg tablet 5 mg PO DAILY 11/20/22
aspirin 81 mg tablet 81 mg PO DAILY 11/20/22
cholecalciferol (vitamin D3) 25 25 mcg PO DAILY 11/20/22
mcg (1,000 unit) capsule (Vitamin
D3)
diazepam 5 mg tablet (Valium) 5 mg PO BID PRN muscle spasm #10 03/05/23
tabs
methylprednisolone 4 mg tablets in 4 mg PO DAILY #21 ea 05/24/23
a dose pack (Medrol (Thierry))
Review of Systems
-
All other systems: A 12 pt ROS was Negative except as stated above in HPI
Vital Signs
Temp Pulse Resp BP Pulse Ox
98.3 F 62 17 158/62 97
08/30/24 10:05 08/30/24 12:45 08/30/24 12:45 08/30/24 12:00 08/30/24 12:45
Physical Exam
Exam
General: No Apparent Distress
HEENT: Anicteric
Respiratory: Clear
Cardiac: Regular Rhythm
GI: Soft, Non Tender, Non Distended and Normal Bowel Sounds
Musculoskeletal: No Edema
Skin: Warm and Dry
Neuro: AO x 3
Psych: Calm
Results
WBC 6.0 10^3/uL (4.8-10.8) 08/30/24 11:20
Hgb 14.3 g/dL (12.0-16.0) 08/30/24 11:20
Hct 40.2 % (37.0-47.0) 08/30/24 11:20
MCV 92.2 fL (81.0-99.0) 08/30/24 11:20
Plt Count 240 10^3/uL (130-400) 08/30/24 11:20
Absolute Neuts (auto) 3.7 10^3/uL (1.4-6.5) 08/30/24 11:20
Sodium 138 mmol/L (135-145) 08/30/24 11:20
Potassium 3.9 mmol/L (3.5-5.1) 08/30/24 11:20
Chloride 107 mmol/L (98-107) 08/30/24 11:20
Carbon Dioxide 26 mmol/L (22-30) 08/30/24 11:20
BUN 13 mg/dl (7-17) 08/30/24 11:20
Creatinine 0.6 mg/dL (0.6-1.0) 08/30/24 11:20
Calcium 9.6 mg/dl (8.4-10.2) 08/30/24 11:20
Total Bilirubin 0.7 mg/dl (0.2-1.3) 08/30/24 11:20
AST 15 U/L (14-36) 08/30/24 11:20
ALT 13 U/L (0-35) 08/30/24 11:20
Alkaline Phosphatase 90 U/L (38-126) 08/30/24 11:20
Lipase 128 U/L (23-300) 08/30/24 11:20
Diagnostic Image Results:
CT Abd/Pelvis with IV contrast:
IMPRESSION:
Distal body and antral gastric wall thickening. Findings suspicious for 2 gastric ulcerations versus contained perforations. No free air. No upper abdominal free fluid or focal collection/abscess.
No bowel obstruction.
No obstructive uropathy.
Incidental hepatic and renal cysts. Infrarenal abdominal aortic aneurysm measuring 3 cm, previous measuring 2.8 cm.
Prior GI Procedures:
EGD: never
Colonoscopy: 02/21/2020 ([facility]) Hemorrhoids found on perianal exam.
- Anal papilla(e) were hypertrophied.
- Two small polyps in the sigmoid colon and in the
descending colon, removed with a jumbo cold forceps.
Resected and retrieved.
- Diverticulosis in the sigmoid colon.
- The examined portion of the ileum was normal.
Assessment / Plan
-
74 y/o famle with PMH seizure, CVA, HTN, HLD, ROBERTH who presents to the ER with approx 1 week hx of epigastric pain. She states that the pain would wake her up in the middle of the night, sharp, lasted the entire night. At first she told me that she
was taking Advil for the pain but later told Surgery that she took Tylenol. She is on ASA 81 mg daily. She states that she was not not having normal BMs. The pain persisted so on she went to the pharmacy and she states the pharmacist told
her to 'stop her statin and take Dulcolax'. She states that she took this and that on Friday she had a 'dark loose stool'. The pain in the night persisted. She tool another Dulacolax on Friday. By Friday she was unable to eat. She has not had a BM
since then. She denies any F, C, V, hematochezia, dysphagia or odynophagia, no prior early satiety or unintentional weight loss. She denies any hx of heartburn or reflux. She denies any tobacco or ETOH at present. CT scan of abd/pelvis with IV
contrast shows Circumferential asymmetric wall thickening involving the gastric antrum and distal body measuring up to 2 cm in thickness along the ventral margin. There are 2 foci of gas identified extending beyond the gastric lumen into the
thickened wall along the anterior margin of the distal gastric body measuring 1.3 cm (image 33 series 201), and along the anterior margin of the gastric antrum measuring up to 1.5 cm (image 31 series 201). Ulcers versus contained perforations. We
are asked to evaluate for the same.
Impression:
Gastric antrum/body ulcer vs contained perforation
Plan:
-General Surgery consulted. Discussed with them
-NPO
-Patient started on Protonix gtt
-No plans on EGD
-Started on Aztreonam and Flagyl
-Likely obtain UGI, timing per General Surgery
-
-
Thank you for consultation and allowing me to participate in the patient's care. Please call the national dedicated truck driver GI physician during the after hours with any questions or concerns.
--- NOTE | 2024-08-30 15:28 | CON.GS ---
Addendum entered and electronically signed by Benny Coates MD 08/30/24 16:41:
I saw and examined the patient independently.
The resident's documentation was reviewed and I agree with the note, assessment and plan except where noted below.
Comment: This is a 74-year-old female who presents with 1 week of abdominal pain, mostly epigastric initially thought to be secondary to constipation. She has been taking Tylenol for the pain and denies any NSAIDs. She drinks caffeine, and is a
former smoker. She has a lower midline incision/ex lap for unclear surgery. Her exam is unremarkable, her blood work is also unremarkable. Her CT scan demonstrates what appears to be a contained perforation in the gastric antrum extending into
the D1 without free air or free fluid or significant inflammation in the surrounding areas for that matter.
Who manage this contained gastric perforation nonoperatively.
Serial abdominal exams.
N.p.o., okay for meds and limited ice chips.
IV fluids.
Will hold off on an NG tube unless patient is vomiting.
Recommend avoiding any sort of instrumentation/endoscopy for now.
GI also following, appreciate their recommendations
Protonix twice daily versus drip per GI
Pain control but Avoid NSAIDs
Zofran
H. pylori testing
Recommend antibiotics prophylactically.
All questions answered, patient agreeable to plan of care above.
Surgery will continue to follow.
Original Note:
Consultation
-
Date/Time Consultation Requested: 08/30/2024
Date/Time Consultation Performed: 08/30/2024
Requesting Provider: Flako Coleman
Performing Provider: Benny Patino
Medical History
-
Chief Complaint: Abdominal pain associated with nausea
History of Present Illness:
Patient is a 74-year-old female with past medical history of essential hypertension, hyperlipidemia, chronic constipation who presented to the ED with complaint of worsening abdominal pain. She was in her usual state of health 1 week ago when she
started to develop crampy abdominal pain that would come and go. She used Tylenol to relieve the pain. In addition, she did not had a bowel movement for a week so she used some laxative Dulcolax that helped her have some loose stool and that
improved her symptoms to some extent. For the last 2 days, she was not able to eat much lunch and dinner and her pain was getting progressively worse. She describes the pain as sharp in nature and 8/10 in intensity associated with fullness and
nausea but no vomiting.
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 She has never had an endoscopy be done and she denied having any symptoms like
that before.
Past Medical History
Past Medical History: HTN and Hypercholesterolemia
Social History
Tobacco: Non-Smoker
Alcohol: None
Drug: None
Personal: Single
Living: Alone
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
Family History
Family History: Reviewed & Not Pertinent
Allergies / Home Medications
Allergy/AdvReac Type Severity Reaction Status Date / Time
azithromycin (From Zithromax) Allergy Hives Verified 01/16/24 15:53
cefaclor Allergy Hives Verified 01/16/24 15:53
clindamycin Allergy Hives Verified 01/16/24 15:53
Iodinated Contrast Media Allergy Rash Verified 01/16/24 15:53
(Iodinated Contrast- Oral
and IV Dye)
levofloxacin (From Levaquin) Allergy Hives Verified 01/16/24 15:53
Penicillins Allergy Hives Verified 01/16/24 15:53
Wqbkxgp-EVB-PfZ Reductase Allergy Pharmacy Verified 01/16/24 15:53
Inhibitor to Review
Sulfa (Sulfonamide Allergy Hives Verified 01/16/24 15:53
Antibiotics)
tetracycline (Tetracycline) Allergy Hives Verified 01/16/24 15:53
CATS Allergy SNEEZING Uncoded 01/16/24 15:53
most antibiotics Allergy hives, Uncoded 01/16/24 15:53
welts
�Medication �Instructions �Recorded �Confirmed �Type
nadolol 40 mg tablet 40 mg PO DAILY 04/01/10 11/20/22 History
amlodipine 5 mg tablet 5 mg PO DAILY 11/20/22 11/20/22 History
aspirin 81 mg tablet 81 mg PO DAILY 11/20/22 11/20/22 History
cholecalciferol (vitamin D3) 25 25 mcg PO DAILY 11/20/22 11/20/22 History
mcg (1,000 unit) capsule (Vitamin
D3)
diazepam 5 mg tablet (Valium) 5 mg PO BID PRN muscle spasm #10 03/05/23 Rx
tabs
methylprednisolone 4 mg tablets in 4 mg PO DAILY #21 ea 05/24/23 Rx
a dose pack (Medrol (Thierry))
Review of Systems
-
All other systems: Negative unless noted
A 10 point review of systems was completed, and was negative except as per HPI.
Physical Exam
Vital Signs
Temp Pulse Resp BP Pulse Ox
98.3 F 62 17 158/62 97
08/30/24 10:05 08/30/24 12:45 08/30/24 12:45 08/30/24 12:00 08/30/24 12:45
08/29/24 08/30/24 08/31/24
06:59 06:59 06:59
Actual Weight 67 kg
Body Mass Index (BMI) 23.9
Lab Results
08/30/24 11:20
08/30/24 11:20
WBC 6.0 10^3/uL (4.8-10.8) 08/30/24 11:20
Hgb 14.3 g/dL (12.0-16.0) 08/30/24 11:20
Hct 40.2 % (37.0-47.0) 08/30/24 11:20
Plt Count 240 10^3/uL (130-400) 08/30/24 11:20
Abs Immat Gran (auto) 0.0 10^3/uL (0-0.05) 08/30/24 11:20
Neutrophils % 61.2 % (42.2-75.2) 08/30/24 11:20
Physical Exam
General: Well Developed, Well Nourished and No Apparent Distress
HEENT: Anicteric and Moist Mucous Membranes
Respiratory: Clear; Negative Wheezes, Rales or Rhonchi
Cardiac: S1/S2 and Regular Rhythm
GI: Soft, Non Tender, Non Distended and Normal Bowel Sounds
Musculoskeletal: No Clubbing, No Cyanosis and No Edema
Skin: Warm and Dry
Neuro: Awake and AO x 3
Psych: Calm
Assessment / Plan
-
Impression
Ms. Teixeira is a 74-year-old female, with gastric ulcerations and contained gastric perforation of unknown origin
Currently asymptomatic
Examination benign
Hemodynamically stable.
CT Abd/pelvis W Iv Cont
- Distal body and antral gastric wall thickening.
- Findings suspicious for 2 gastric ulcerations versus contained perforations.
- No free air. No upper abdominal free fluid or focal collection/abscess.
- No bowel obstruction.
- No obstructive uropathy.
- Incidental hepatic and renal cysts. Infrarenal abdominal aortic aneurysm measuring 3 cm, previous measuring 2.8 cm.
On labs review no leukocytosis
Hemoglobin stable
Normal serum chemistry
Lipase normal
Multi antibiotic allergy
Plan
N.p.o.
Limit ice chips
Give IV fluids
PPIs twice daily
Optimize pain management give antiemetics as needed
GI consult
Monitor and serial abdominal exams
[2024-08-30] MEDS: NSS 1000 IV ×2 (15:47→17:59)
[2024-08-30] MEDS: PROTONIX IV 80 MG IV (15:48)
[2024-08-30] MEDS: FLAGYL 500 MG 100 IV (17:57)
[2024-08-30] MEDS: AZACTAM 2000 MG IV (20:26)
[2024-08-30] MEDS: STERILE WATER FOR INJECTION 10 ML IV (20:27)
[2024-08-30] MEDS: PROTONIX IV 40 MG IV (20:27)
[2024-08-30] MEDS: NSS (PRESERVATIVE FREE) 10 ML IV (20:28)
[2024-08-30] MEDS: KEPPRA 500 MG IV (20:30)
[2024-08-31] MEDS: FLAGYL 500 MG IV ×2 (01:23→17:31)
[2024-08-31] MEDS: AZACTAM 2000 MG IV ×3 (04:12→20:29)
[2024-08-31] MEDS: STERILE WATER FOR INJECTION 10 ML IV ×3 (04:12→20:27)
--- NOTE | 2024-08-31 07:06 | W.PN.GS2 ---
Addendum entered and electronically signed by Osei Greenwood MD 08/31/24 12:29:
Patient seen and examined.
No complaints. Denies any abdominal pain. No nausea or vomiting. Afebrile.
Gen: NAD
Abd: soft, NT/ND, non-peritoneal
Labs and imaging was reviewed.
Patient is a 74 yo F p/w peptic ulcer disease with possible contained perforation
AVSS
Labs notable for normal WBC
Clinically stable. Patient eager to get back to life outside the hospital. Given the severity of her CT scan findings, recommend continue medical management of peptic ulcer disease and possible contained perforation. Risks of discharge with
worsening of her ulceration with resulting perforation or stricturing were discussed. Role of IV PPI and antibiotics was discussed. Plan on repeat imaging with a CT scan with oral contrast (vs. UGI) 2 to 3 days after presentation.
-- Repeat CT with PO contrast (vs. UGI) tomorrow versus were discussed
-- Continue NPO, IVF and antibiotics
-- PPI BID
-- Will need EGD as outpatient
Original Note:
Today's Communication / Plan
-
keep on bowel rest
Assessment / Plan
-
Impression
This is a 74-year-old female with gastric antrum ulcer and contained perforation of unknown origin within the stomach with no leak of fluid/air into surrounding
Assessment/plan
Remains asymptomatic
Examination benign
Hemodynamically stable
On lab review-normal hemodynamics/normal serum chemistry/normal lipase
Plan to manage the contained gastric perforation nonoperatively
continue PPI
Hold off on NG tube unless patient is vomiting
Optimize pain management but avoid NSAIDS
Continue empiric antibiotics
keep npo
Monitor with serial abdominal exam
Upper GI series
Subjective Data
-
Date of Service: August 31, 2024
Patient seen and examined at bedside
Denies nausea ,vomiting or abdominal pain
Eager to go home
Objective Data
-
Intake and Output
08/30/24 08/31/24 09/01/24
06:59 06:59 06:59
Other:
Number of approximated MODERATE 3
amounts of urine
Vital Signs
Temp Pulse Resp BP Pulse Ox
98 F 58 18 111/62 95
08/30/24 23:00 08/30/24 23:00 08/30/24 23:00 08/30/24 23:00 08/30/24 23:00
Calcium 9.6 mg/dl (8.4-10.2) 08/30/24 11:20
Total Bilirubin 0.7 mg/dl (0.2-1.3) 08/30/24 11:20
AST 15 U/L (14-36) 08/30/24 11:20
ALT 13 U/L (0-35) 08/30/24 11:20
Alkaline Phosphatase 90 U/L (38-126) 08/30/24 11:20
Total Protein 6.8 g/dl (6.3-8.2) 08/30/24 11:20
Albumin 4.2 g/dl (3.5-5.0) 08/30/24 11:20
Physical Exam
-
Hemodynamically stable
No apparent distress, well-developed, pleasant
Abdominal soft, nontender and normal bowel sounds
Chest bilaterally clear to auscultation
Patient has a mcdonald catheter: No
Patient has a central line: No
[2024-08-31 07:26] LABS: Hematocrit 34.5 % (37.0-47.0); Mean Corp Hgb Conc. 34.8 g/dL (33.0-37.0); Mean Corpuscular Hgb 32.3 pg (27.0-31.0); Mean Platelet Volume 9.4 fL (7.4-10.4); Platelet Count 238 10^3/uL (130-400); Red Blood Cell Count 3.71 10^6/uL (4.20-5.40); White Blood Cell Count 5.5 10^3/uL (4.8-10.8)
[2024-08-31 08:17] LABS: Blood Urea Nitrogen 16 mg/dl (7-17); Calcium 9.1 mg/dl (8.4-10.2); Carbon Dioxide 23 mmol/L (22-30); Chloride 113 mmol/L (98-107); Estimated Creatinine Clearance 79 ml/min; Glucose 83 mg/dl (70-99); Potassium 3.3 mmol/L (3.5-5.1); Sodium 141 mmol/L (135-145); eGFR > 60.00
[2024-08-31] MEDS: FLAGYL 500 MG 100 IV ×2 (08:30→17:01)
[2024-08-31 08:36] VITALS: BP 130/69
--- NOTE | 2024-08-31 09:04 | PHA.VAN.IN ---
Assessment
- Assessment
Renal Function: Appears similar to baseline
Concomitant Antimicrobials: aztreonam, metronidazole
AUC Dosing Plan
- Dosing Variables
Dosing Weight (kg): 63
Dosing CrCl (ml/min): 79
Vd coefficient (L/kg): 0.7
- Empiric Dosing
Maintenance Regimen: Vanc 750mg Q12H - in lieu of load give first dose now then 1800
Estimated AUC (mcg*h/mL): 503
Estimated Peak (mcg*h/mL): 30
Estimated Trough (mcg/ml): 14
Estimated Half Life (H): 10
- Monitoring
No levels ordered at this time: consider levels in next few days
Pharmacokinetics Vancomycin I
- -
Patient Age: 74
Patient Sex: Female
Vancomycin Day #: 1
Indication: Gi / Intra-Abdominal
Requesting Provider: Dr. Manzo
Pertinent Antimicrobial Allergies:
azithromycin - hives
cefaclor - hives
clindamycin - hives
levofloxacin - hives
penicillins - hives
sulfonamide antibiotics - hives
tetracyclines - hives
most antibiotics - hives, welts
Height / Weight:
Height 5 ft 6 in
Actual Weight 63.231 kg
- Vital Signs / Lab Results
Temp Pulse Resp BP Pulse Ox
98.5 F 54 16 130/69 94
08/31/24 08:36 08/31/24 08:36 08/31/24 08:36 08/31/24 08:36 08/31/24 08:36
Lab Results - Hematology
08/30/24 08/31/24
11:20 06:54
WBC 6.0 5.5
Lab Results - Chemistry
08/30/24 08/31/24
11:20 06:54
BUN 13 16
Creatinine 0.6 0.5 L
Estimated Creat Clear 79 79
Albumin 4.2
[2024-08-31] MEDS: VANCOCIN 150 IV ×2 (09:59→18:13)
[2024-08-31] MEDS: NSS (PRESERVATIVE FREE) 10 ML IV (10:00)
[2024-08-31] MEDS: KEPPRA 500 MG IV ×2 (10:01→20:31)
[2024-08-31] MEDS: PROTONIX IV 40 MG IV (10:01)
--- NOTE | 2024-08-31 10:12 | W.PN.GI.CBS2 ---
Today's Communication / Plan
-
C/w current therapies (abx, PPI gtt and bowel rest)
Appreciate surgical recs
No new GI recs. GI will sign off please call for ?
Assessment / Plan
-
74 y/o famle with PMH seizure, CVA, HTN, HLD, ROBERTH who presents to the ER with approx 1 week hx of epigastric pain. She states that the pain would wake her up in the middle of the night, sharp, lasted the entire night. At first she told me that she
was taking Advil for the pain but later told Surgery that she took Tylenol. She is on ASA 81 mg daily. She states that she was not not having normal BMs. The pain persisted so on she went to the pharmacy and she states the pharmacist told
her to 'stop her statin and take Dulcolax'. She states that she took this and that on Friday she had a 'dark loose stool'. The pain in the night persisted. She tool another Dulacolax on Friday. By Friday she was unable to eat. She has not had a BM
since then. She denies any F, C, V, hematochezia, dysphagia or odynophagia, no prior early satiety or unintentional weight loss. She denies any hx of heartburn or reflux. She denies any tobacco or ETOH at present. CT scan of abd/pelvis with IV
contrast shows Circumferential asymmetric wall thickening involving the gastric antrum and distal body measuring up to 2 cm in thickness along the ventral margin. There are 2 foci of gas identified extending beyond the gastric lumen into the
thickened wall along the anterior margin of the distal gastric body measuring 1.3 cm (image 33 series 201), and along the anterior margin of the gastric antrum measuring up to 1.5 cm (image 31 series 201). Ulcers versus contained perforations. We
are asked to evaluate for the same.
Impression:
Gastric antrum/body ulcer vs contained perforation
Plan:
- C/w bowel rest
- C/w protonix gtt
- Continue to avoid all nsaids
- Abx per primary team
- No role for EGD given perforation air can worsen symptoms
- Appreciate surgical recs
- Diet and serial imaging per surgery
At this juncture no new GI recs will sign off please call for ?
Subjective
Subjective
Date of Service: August 31, 2024
She feels abd pain improving. Denies nausea/vomiting.
Objective
Data Reviewed
Laboratory Data:
Laboratory Results
08/31/24 06:54
08/31/24 06:54
Laboratory Results
Total Bilirubin 0.7 mg/dl (0.2-1.3) 08/30/24 11:20
AST 15 U/L (14-36) 08/30/24 11:20
ALT 13 U/L (0-35) 08/30/24 11:20
Alkaline Phosphatase 90 U/L (38-126) 08/30/24 11:20
Lipase 128 U/L (23-300) 08/30/24 11:20
Vital Signs and I&O:
Vital Signs
Temp Pulse Resp BP Pulse Ox
98.5 F 54 16 130/69 94
08/31/24 08:36 08/31/24 08:36 08/31/24 08:36 08/31/24 08:36 08/31/24 08:36
Physical Exam
Physical Exam
GEN: No acute distress, conversant, pleasant
HEENT: anicteric, extraocular movements intact, clear oropharynx without exudates
GI: soft, mildly-distended, not tender to palpation, normal active bowel sounds, no hepatosplenomegaly
EXT: warm, well perfused, trace edema bilaterally
NEURO: AAOx3, non-focal
[2024-08-31] MEDS: NSS IV (10:13)
[2024-08-31] MEDS: KCL 260 MEQ IV (11:24)
--- NOTE | 2024-08-31 13:37 | W.PN.HOSP.TC ---
Today's Communication/Plan
-
NPO
IVF
PPI
AB
Assessment / Plan
Assessment / Plan
74-year-old with abdominal pain symptoms started on . Patient saw Dr. Curry and was referred to the ER
2 gastric ulcerations versus contained perforations. No free air. No upper abdominal free fluid or focal fluid collection or abscess. No bowel obstruction. No obstructive uropathy. Incidental hepatic and renal cysts. Infrarenal abdominal
aortic aneurysm measuring 3 cm previously 2.[address] abdomen and pelvis-distal body and antral gastric wall thickening. Findings suspicious for
CVS: S1-S2 normal
Chest: CTA B/L
Abdomen: Soft, mild epigastric discomfort,Bowel sounds present
Extremities: No edema, normal pulses
# Abdominal pain likely secondary to gastric ulcerations and contained perforation
Continue Protonix IV
IV fluids and n.p.o.
Currently on Azactam and Flagyl .Added vancomycin
H. pylori testing
Surgery consulted
Nonoperative management recommended
# Hypokalemia-replace IV
# Hypertension-hold off amlodipine and nadolol. Blood pressure stable
# Seizures-Keppra IV
# History of Juvencio thyroiditis
# Infrarenal AAA 3 cm size-outpatient follow-up with CT surgery
# Bicuspid aortic valve
# History of right frontal and parietal lobe CVA-on aspirin as outpatient. Unclear why he is not on statin. Hold in the setting of peptic ulcer disease until cleared by surgery/GI
# Ex-smoker
# DVT prophylaxis-Lovenox
# Full code
D/W RN at bed side
D/W Surgeon
Part of this note was created using voice recognition system. Occasional wrong word or��sound alike� substitutions may have inadvertently occurred due to the inherent limitations of voice recognition software. If noted kindly bring it to my
attention for correction.
Anticipated Discharge: > 48 hours
Subjective/Interval History
-
Date of Service: August 31, 2024
Objective Data
-
Labs:
Laboratory Results
08/31/24
06:54
WBC 5.5
Hgb 12.0
Hct 34.5 L
Plt Count 238
Sodium 141
Potassium 3.3 L
Chloride 113 H
Carbon Dioxide 23
BUN 16
Creatinine 0.5 L
Glucose 83
Calcium 9.1
Vital Signs:
Vital Signs
Temp Pulse Resp BP Pulse Ox
98.5 F 54 16 130/69 94
08/31/24 08:36 08/31/24 08:36 08/31/24 08:36 08/31/24 08:36 08/31/24 08:36
[2024-08-31] MEDS: D5LR 1000 IV (14:06)
[2024-08-31] MEDS: PROTONIX 100 IV ×2 (14:21→22:29)
--- NOTE | 2024-08-31 14:44 | CM ---
Patient seen bedside, initial assessment completed. Patient is a 74-year-old female with past medical history significant for hypertension presented to [facility] ED for evaluation of mid upper abdominal pain.
Patient resides alone in a 2nd floor condo, 12 steps from the parking lot, additional 13 steps to front door. Patient is independent in all areas, no DME identified. Denies SNF/HC hx. 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
participative w/ her pentecostalism. Patient drives, drove self to [facility].
Address, points of contact and insurance verified
PCP: Santiago Prajapati
Pharmacy: [facility]- [facility] in [place]
Plan: Home, no needs likely
[2024-08-31 15:20] VITALS: BP 136/65
[2024-08-31 23:00] VITALS: BP 143/64
[2024-09-01] MEDS: FLAGYL 500 MG 100 IV ×2 (01:27→08:43)
[2024-09-01] MEDS: AZACTAM 2000 MG IV ×3 (03:38→19:39)
[2024-09-01] MEDS: STERILE WATER FOR INJECTION 10 ML IV ×3 (03:39→19:39)
[2024-09-01] MEDS: VANCOCIN 150 IV (05:17)
[2024-09-01] MEDS: PROTONIX 100 IV (06:49)
[2024-09-01 08:11] VITALS: BP 141/63
[2024-09-01 08:17] LABS: Hematocrit 35.5 % (37.0-47.0); Hemoglobin 12.7 g/dL (12.0-16.0); Mean Corp Hgb Conc. 35.8 g/dL (33.0-37.0); Mean Corpuscular Hgb 32.7 pg (27.0-31.0); Mean Corpuscular Volume 91.5 fL (81.0-99.0); Mean Platelet Volume 9.6 fL (7.4-10.4); Platelet Count 248 10^3/uL (130-400); Red Blood Cell Count 3.88 10^6/uL (4.20-5.40); White Blood Cell Count 5.1 10^3/uL (4.8-10.8)
[2024-09-01] MEDS: D5LR 1000 IV (08:41)
[2024-09-01] MEDS: KEPPRA 500 MG IV ×2 (08:41→19:39)
[2024-09-01 09:20] LABS: Blood Urea Nitrogen 11 mg/dl (7-17); Calcium 8.6 mg/dl (8.4-10.2); Carbon Dioxide 21 mmol/L (22-30); Chloride 112 mmol/L (98-107); Estimated Creatinine Clearance 79 ml/min; Glucose 93 mg/dl (70-99); Potassium 3.2 mmol/L (3.5-5.1); Sodium 140 mmol/L (135-145); eGFR > 60.00
--- NOTE | 2024-09-01 11:01 | PHA.VAN.FU ---
Vancomycin Assessment / Plan
- Assessment
Renal Function: Stable
WBC's are: WNL
In the past 24 hrs, patient has been: Afebrile
Concomitant Antimicrobials: aztreonam, metronidazole
- Dosing Plan
Continue: Vanc 750mg Q12H
- Monitoring Plan
No level(s) ordered at this time: consider levels in next few days
- Follow Up
Pharmacy will continue to follow.
Vancomycin Follow UP
- -
Patient Age: 74
Patient Sex: Female
Vancomycin Day #: 2
Indication: Gi / Intra-Abdominal
Requesting Provider: Dr. Manzo
Pertinent Antimicrobial Allergies:
azithromycin - hives
cefaclor - hives
clindamycin - hives
levofloxacin - hives
penicillins - hives
sulfonamide antibiotics - hives
tetracyclines - hives
most antibiotics - hives, welts
Height / Weight:
Height 5 ft 6 in
Actual Weight 63.231 kg
- Vital Signs / Lab Results
Temp Pulse Resp BP Pulse Ox
97.6 F 51 16 141/63 97
09/01/24 08:11 09/01/24 08:11 09/01/24 08:11 09/01/24 08:11 09/01/24 08:11
Lab Results - Hematology
08/30/24 08/31/24 09/01/24
11:20 06:54 07:11
WBC 6.0 5.5 5.1
Lab Results - Chemistry
08/30/24 08/31/24 09/01/24
11:20 06:54 07:11
BUN 13 16 11
Creatinine 0.6 0.5 L 0.5 L
Estimated Creat Clear 79 79 79
Albumin 4.2
--- NOTE | 2024-09-01 12:57 | W.PN.GS2 ---
Today's Communication / Plan
-
UGI
Assessment / Plan
-
Impression
This is a 74-year-old female with gastric antrum ulcer and contained perforation of unknown origin within the stomach with no leak of fluid/air into surrounding
Assessment/plan
Remains asymptomatic
Examination benign
Hemodynamically stable
On lab review-normal hemodynamics/normal serum chemistry/normal lipase
Plan to manage the contained gastric perforation nonoperatively
continue PPI
Hold off on NG tube unless patient is vomiting
Optimize pain management but avoid NSAIDS
Continue empiric antibiotics
keep npo
Monitor with serial abdominal exam
Upper GI series today, if no leak, adv to CLD
Discussions held with pt regarding gradual diet advancement with fulls tomorrow and low res the following day if no symptoms. Advised to avoid carbonated beverages and acidic foods/drinks. Advised she will be on max dose PPI upon DC and will need
close GI f/u. She will likely benefit from EGD in the near future after she recovers. All ?s answered. She prefers to adv her own diet at home, I am in agreement.
Subjective Data
-
Date of Service: September 01, 2024
Denies abd pain, denies n/v, no complaints
Objective Data
-
Intake and Output
08/31/24 09/01/24 09/02/24
06:59 06:59 06:59
Intake Total 120 / 120
Balance 120 / 120
Intake:
Oral fluids 120 / 120
Other:
Number of approximated MODERATE 3 5
amounts of urine
Vital Signs
Temp Pulse Resp BP Pulse Ox
97.6 F 51 16 141/63 97
09/01/24 08:11 09/01/24 08:11 09/01/24 08:11 09/01/24 08:11 09/01/24 08:11
Lab Results
09/01/24 07:11
09/01/24 07:11
Calcium 8.6 mg/dl (8.4-10.2) 09/01/24 07:11
Magnesium 2.0 mg/dl (1.6-2.3) 09/01/24 07:11
Total Bilirubin 0.7 mg/dl (0.2-1.3) 08/30/24 11:20
AST 15 U/L (14-36) 08/30/24 11:20
ALT 13 U/L (0-35) 08/30/24 11:20
Alkaline Phosphatase 90 U/L (38-126) 08/30/24 11:20
Total Protein 6.8 g/dl (6.3-8.2) 08/30/24 11:20
Albumin 4.2 g/dl (3.5-5.0) 08/30/24 11:20
Physical Exam
-
Gen: NAD
Abd: soft, nt, nd
Patient has a mcdonald catheter: No
Patient has a central line: No
--- NOTE | 2024-09-01 13:48 | W.PN.HOSP.TC ---
Addendum entered and electronically signed by Evelio Manzo MD 09/01/24 16:53:
Dictation- [id number]
Addendum entered and electronically signed by Evelio Manzo MD 09/01/24 16:24:
Upper GI series noted. Large gastric ulcer. No perforation. Discussed with Dr. Hills. No antibiotics required as there is no perforation. Infectious disease consultation discontinued.
Patient was given an appointment for 11/04/2024. Patient is absolutely wanting to leave today and does not want to stay another day.
Dr. Hills had discussed with the patient how to advance the diet.
I also discussed with the patient not to use any carbonated beverages.
Prescription sent to patient's pharmacy
She needs a repeat potassium levels prior to discharge once infusion is completed
Case discussed with GI front office, GI, surgery, nursing
More than 30 minutes spent in discharge including
Final examination of the patient
Summarizing hospital stay
Instructions for continuing care to all relevant caregivers
Preparation of discharge records, prescriptions, and referral forms
Total time spent (in minutes): 38 min
Original Note:
Today's Communication/Plan
-
Upper GI series
Assessment / Plan
Assessment / Plan
74-year-old with abdominal pain symptoms started on . Patient saw Dr. Curry and was referred to the ER
2 gastric ulcerations versus contained perforations. No free air. No upper abdominal free fluid or focal fluid collection or abscess. No bowel obstruction. No obstructive uropathy. Incidental hepatic and renal cysts. Infrarenal abdominal
aortic aneurysm measuring 3 cm previously 2.[address] abdomen and pelvis-distal body and antral gastric wall thickening. Findings suspicious for
CVS: S1-S2 normal
Chest: CTA B/L
Abdomen: Soft, denies any discomfort,Bowel sounds present
Extremities: No edema, normal pulses
# Abdominal pain likely secondary to gastric ulcerations and contained perforation
Continue Protonix IV
IV fluids and n.p.o.
Currently on Azactam and Flagyl and vancomycin
H. pylori testing pending
Surgery consulted
Upper GI series pending today
Nonoperative management recommended
# Hypokalemia-replace IV
# Hypertension-hold off amlodipine and nadolol. Blood pressure stable
# Seizures-Keppra IV
# History of Juvencio thyroiditis
# Infrarenal AAA 3 cm size-outpatient follow-up with CT surgery
# Bicuspid aortic valve
# History of right frontal and parietal lobe CVA-on aspirin as outpatient. Unclear why he is not on statin. Hold in the setting of peptic ulcer disease until cleared by surgery/GI
# Ex-smoker
# DVT prophylaxis-Lovenox
# Full code
D/W RN at bed side
D/W Surgeon
Discussed with patient regarding all her antibiotic allergies. She thinks she had some intolerances to some of the medicines when she was in her 20s and all of them got listed as allergies. She does remember that she is truly allergic to
penicillin and sulfa. She is not sure about other medicines. I have asked her to follow-up with an sales representative cash registers and it is very important to sort out which medicines she is allergic to and which medicines she is not. Patient states that she can take
erythromycin. She also states that she can take quinolones which I hate to use with her AAA. She thinks tetracycline made her tongue black
At this point I will request infectious disease opinion
Part of this note was created using voice recognition system. Occasional wrong word or��sound alike� substitutions may have inadvertently occurred due to the inherent limitations of voice recognition software. If noted kindly bring it to my
attention for correction.
Anticipated Discharge: Within 24 hours
Subjective/Interval History
-
Date of Service: September 01, 2024
Objective Data
-
Labs:
Laboratory Results
09/01/24
07:11
WBC 5.1
Hgb 12.7
Hct 35.5 L
Plt Count 248
Sodium 140
Potassium 3.2 L
Chloride 112 H
Carbon Dioxide 21 L
BUN 11
Creatinine 0.5 L
Glucose 93
Calcium 8.6
Vital Signs:
Vital Signs
Temp Pulse Resp BP Pulse Ox
97.6 F 51 16 141/63 97
09/01/24 08:11 09/01/24 08:11 09/01/24 08:11 09/01/24 08:11 09/01/24 08:11
I&O
08/31/24 09/01/24 09/02/24
06:59 06:59 06:59
Intake Total 120 / 120
Balance 120 / 120
[2024-09-01] MEDS: KCL 270 MEQ IV (14:29)
[2024-09-01 16:07] VITALS: BP 117/67
[2024-09-01] MEDS: D5LR IV (16:13)
--- NOTE | 2024-09-01 16:14 | W.PN.UPDATE ---
Update Note
Progress Note Update
GI Update
Appt given for 11/04 at 11:30am with GEOFF Lee in GI office.
C/w PPI BID for at least 12 weeks
Carafate x2wks
Hold ASA 81mg for 1 wk
Plan for EGD in 8-12 weeks time to ascertain ulcer healing.
D/c paperwork and hospitalist updated.
--- NOTE | 2024-09-01 16:53 | W.DS.TRANS ---
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
-
Discharge Instructions:
Discharge Diagnosis/Procedures Large gastric ulcer
Low potassium
Hypertension
Seizures
History of Juvencio's thyroiditis
Infrarenal AAA
Bicuspid aortic valve
History of stroke
Diet Other diet
Additional Diets Clear liquid diet on 09/01/2024. Full liquid
diet on 09/02/2024. Low residue diet starting
. Do not consume any acidic foods or
drinks. Do not consume any carbonated beverages
.
Activity As tolerated
Driving Restrictions As prior to admission
Blood Work BMP next week-get prescription from PCP
Others Tests You need to get an endoscopy as outpatient. See
GI doctor
Instructions:
Stand-Alone Forms:
Changes to Home Medications: Yes
Discharge Medications:
DC Medications w/original date entered in [facility]
nadolol 40 mg tablet 40 mg PO DAILY Blood Pressure 04/01/10
amlodipine 5 mg tablet 5 mg PO DAILY Blood Pressure 11/20/22
cholecalciferol (vitamin D3) 25 mcg (1,000 unit) capsule (Vitamin D3) 25 mcg PO DAILY Supplement 11/20/22
acetaminophen 500 mg tablet (Tylenol Extra Strength) 500 mg PO Q6H PRN mild pain 08/30/24
aspirin 81 mg tablet,delayed release 81 mg PO DAILY Blood Clot Prevention/Tx 08/30/24
Held on 09/01/24. Instructions: Resume on 09/08/24.
bisacodyl 5 mg tablet,delayed release (Dulcolax (bisacodyl)) 5 mg PO HS PRN constipation 08/30/24
levetiracetam 500 mg tablet 500 mg PO Q12H Neurological Condition 08/30/24
pantoprazole 40 mg tablet,delayed release (Protonix) 40 mg PO BID Gastrointestinal issue #60 tabs 09/01/24
potassium chloride 20 mEq oral packet 20 meq PO DAILY Electrolyte Repletion #3 ea 09/01/24
sucralfate 100 mg/mL oral suspension 1 g (10 mL) PO BID Gastrointestinal issue #414 mL 09/01/24
Home Medication Changes
new
Protonix, Carafate, potassium
Hold aspirin for 1 week
Pending Results: No
[2024-09-01] MEDS: FLAGYL 500 MG IV (17:24)
[2024-09-01] MEDS: VANCOCIN IV (17:24)
[2024-09-01] MEDS: CARAFATE SUSPENSION 1 GM PO (19:39)
[2024-09-01 20:51] LABS: Potassium 3.8 mmol/L (3.5-5.1)
[2024-09-01 21:25] VITALS: BP 135/76
--- NOTE | 2024-09-01 21:34 | PTCARENOTE ---
Pt discharged. VS charted. IV removed. Pt reviewed discharge instructions. Security assist pt to car.
== END 2024-09-01 21:12 | disposition home or self-care (01) | DRG 384 ==
LOC: 4 WEST ACU 16:05
PROVIDERS: Nurse Practitioner Family; Physician Assistant; ADMITTING PHYSICIAN Internal Medicine; ATTENDING PHYSICIAN Hospitalist; CONSULT PHYSICIAN Internal Medicine Gastroenterology; CONSULT PHYSICIAN Surgery; EMERGENCY PHYSICIAN Emergency Medicine; FAMILY PHYSICIAN Family Medicine
DX: K25.9 Gastric ulcer, unspecified as acute or chronic, without hemorrhage or perforation (principal); I71.43 Infrarenal abdominal aortic aneurysm, without rupture; N28.1 Cyst of kidney, acquired; I10 Essential (primary) hypertension; R56.9 Unspecified convulsions; E87.6 Hypokalemia; E06.3 Autoimmune thyroiditis; F17.200 Nicotine dependence, unspecified, uncomplicated; Q23.81 Bicuspid aortic valve; Z86.73 Personal history of transient ischemic attack (TIA), and cerebral infarction without residual deficits; Z79.82 Long term (current) use of aspirin; Z79.899 Other long term (current) drug therapy
CPT/HCPCS: 74177; 74240; 80048; 80053; 83690; 83735; 84132; 85025; 85027; 96361; 96374; 96375; 99284; Q9967

== ENCOUNTER → 2024-09-22 07:37 | Outpatient (REF) | payer MEDICARE, OTHER, SELFPAY ==
[2024-09-22 08:15] LABS: Hematocrit 39.8 % (37.0-47.0); Hemoglobin 13.6 g/dL (12.0-16.0); Mean Corp Hgb Conc. 34.2 g/dL (33.0-37.0); Mean Corpuscular Volume 95.4 fL (81.0-99.0); Nucleated Red Blood Cells % 0 %; Platelet Count 273 10^3/uL (130-400); Red Cell Dist. Width 12.4 % (11.5-14.5)
[2024-09-22 08:55] LABS: ALT (SGPT) 11 U/L (0-35); AST (SGOT) 15 U/L (14-36); Albumin 4.0 g/dl (3.5-5.0); Alkaline Phosphatase 87 U/L (38-126); Blood Urea Nitrogen 18 mg/dl (7-17); Calcium 9.8 mg/dl (8.4-10.2); Carbon Dioxide 28 mmol/L (22-30); Chloride 109 mmol/L (98-107); Glucose 103 mg/dl (70-99); HDL Cholesterol 36 mg/dl; LDL Cholesterol, Calculated 134 mg/dl; Potassium 4.3 mmol/L (3.5-5.1); Sodium 138 mmol/L (135-145); Total Protein 6.8 g/dl (6.3-8.2); Very Low Density Lipoprotein 23 mg/dl (0-30); eGFR > 60.00
== END ==
LOC: REG 07:37
PROVIDERS: ATTENDING PHYSICIAN Family Medicine
DX: K25.3 Acute gastric ulcer without hemorrhage or perforation (principal); E87.6 Hypokalemia; Z13.1 Encounter for screening for diabetes mellitus; E78.00 Pure hypercholesterolemia, unspecified
CPT/HCPCS: 36415; 80053; 80061; 85025

== ENCOUNTER → 2024-09-23 07:42 | Outpatient (REF) | payer MEDICARE, OTHER, SELFPAY ==
[2024-09-24 23:56] LABS: H. pylori Antigen, Fecal Negative (Negative)
== END ==
LOC: REG 07:42
PROVIDERS: ATTENDING PHYSICIAN Family Medicine
DX: K25.3 Acute gastric ulcer without hemorrhage or perforation (principal)
CPT/HCPCS: 36415; 87338

== ENCOUNTER 2024-10-15 06:29 | Day surgery (SDC) | payer MEDICARE, OTHER, SELFPAY | END 2024-10-15 13:05 | disposition home or self-care (01) | LOC: GI 06:29 | PROVIDERS: ATTENDING PHYSICIAN Internal Medicine Gastroenterology | DX: R12 Heartburn (principal); K44.9 Diaphragmatic hernia without obstruction or gangrene; K25.9 Gastric ulcer, unspecified as acute or chronic, without hemorrhage or perforation; K31.89 Other diseases of stomach and duodenum | CPT/HCPCS: 43239; 88305; 88342 ==

== ENCOUNTER → 2024-12-06 09:04 | Outpatient (REF) | payer MEDICARE, OTHER, SELFPAY | LOC: EEG 09:04 | PROVIDERS: ATTENDING PHYSICIAN Psychiatry & Neurology Neurology; FAMILY PHYSICIAN Family Medicine | DX: G40.909 Epilepsy, unspecified, not intractable, without status epilepticus (principal) | CPT/HCPCS: 95708 ==

== ENCOUNTER → 2025-01-18 10:16 | Outpatient (REF) | payer MEDICARE, OTHER, SELFPAY ==
--- NOTE | 2025-01-18 13:16 | EEG.RPT ---
Electroencephalogram Report
Recording
Date of EE01/17/25
Type of EEG: Ambulatory
Length of EEG recordin hours 8 minutes
Done with Video Recording: No
Patient Status: Outpatient
Recording Conditions: Awake, Drowsy and Asleep
Hyperventilation Performed: Yes
Photic Stimulation Performed: Yes
Report
24 HOUR EEG REPORT
24 HOUR EEG INTERPRETATION:
Abnormal EEG for age in wakefulness through sleep due to left centro-parietal lateralized discharges from wakefulness only
CLINICAL CORRELATION:
This study was suggestive of a generalizing subclinical seizure disorder seizures were recorded. The patient�s logs did not indicate clinical symptoms. Prolonged EEG recording for greater than 48 hours may be warranted.
Clinical correlation is advised.
METHODS:
A 21 channel digitized electroencephalogram (EEG) was initiated in the Clinical Neurophysiology Laboratory. The patient then wore the device outside of the lab and returned after 24 hours for EEG lead and recorder removal. The 10/20 international
system of electrode placement was used. ECG was monitored. Persyst quantitative EEG analysis was performed.
ELECTROENCEPHALOGRAPHER IMPRESSION(S):
Quality
Good
Background
In maximal wakefulness there was an alpha background.
There was a normal anterior-posterior voltage gradient.
There were no significant asymmetries of background activity noted.
Sleep
Drowsiness was suggested by slowing of the background rhythms
Stage 2 sleep captured
ECG:
Normal sinus rhythm
Persyst Review:
Seen only in the first half of the study were focal left parieto-central periodic lateralizing crescrendo-decrescendo discharges which were of approximately 1 to 1.5 Hz and medium to high amplitude. Runs of twenty seconds on approximately eight
occasions were seen with some runs associated with generalization.
== END ==
LOC: WDC 10:16
PROVIDERS: ATTENDING PHYSICIAN Family Medicine
DX: Z12.31 Encounter for screening mammogram for malignant neoplasm of breast (principal)
CPT/HCPCS: 77063; 77067

== ENCOUNTER → 2025-02-09 15:52 | Outpatient (REF) | payer MEDICARE, SELFPAY ==
[2025-02-09 16:54] LABS: Blood Urea Nitrogen 17 mg/dl (7-17); Calcium 9.8 mg/dl (8.4-10.2); Carbon Dioxide 29 mmol/L (22-30); Chloride 104 mmol/L (98-107); Glucose 85 mg/dl (70-99); Potassium 3.9 mmol/L (3.5-5.1); Sodium 139 mmol/L (135-145); eGFR > 60.00
== END ==
LOC: REG 15:52
PROVIDERS: ATTENDING PHYSICIAN Thoracic Surgery (Cardiothoracic Vascular Surgery)
DX: I71.21 Aneurysm of the ascending aorta, without rupture (principal); Z01.810 Encounter for preprocedural cardiovascular examination
CPT/HCPCS: 36415; 80048

== ENCOUNTER → 2025-02-12 07:39 | Outpatient (REF) | payer MEDICARE, OTHER, SELFPAY ==
[2025-02-12 08:30] LABS: Hematocrit 41.5 % (37.0-47.0); Hemoglobin 14.3 g/dL (12.0-16.0); Mean Corp Hgb Conc. 34.5 g/dL (33.0-37.0); Mean Corpuscular Volume 94.5 fL (81.0-99.0); Nucleated Red Blood Cells % 0 %; Platelet Count 236 10^3/uL (130-400); Red Cell Dist. Width 12.2 % (11.5-14.5)
[2025-02-12 08:58] LABS: ALT (SGPT) 13 U/L (0-35); AST (SGOT) 18 U/L (14-36); Albumin 4.2 g/dl (3.5-5.0); Alkaline Phosphatase 90 U/L (38-126); Blood Urea Nitrogen 17 mg/dl (7-17); Calcium 9.5 mg/dl (8.4-10.2); Carbon Dioxide 28 mmol/L (22-30); Chloride 105 mmol/L (98-107); Glucose 88 mg/dl (70-99); HDL Cholesterol 41 mg/dl; LDL Cholesterol, Calculated 153 mg/dl; Potassium 4.3 mmol/L (3.5-5.1); Sodium 138 mmol/L (135-145); Total Protein 7.2 g/dl (6.3-8.2); Very Low Density Lipoprotein 29 mg/dl (0-30); eGFR > 60.00
[2025-02-12 09:14] LABS: Vitamin D, 25-OH*** 52.5 ng/mL (30-80)
[2025-02-12 09:47] LABS: Vitamin B12 602 pg/ml (239-931)
== END ==
LOC: REG 07:39
PROVIDERS: ATTENDING PHYSICIAN Family Medicine
DX: Z87.11 Personal history of peptic ulcer disease (principal); E78.00 Pure hypercholesterolemia, unspecified; E87.6 Hypokalemia; Z13.29 Encounter for screening for other suspected endocrine disorder; E55.9 Vitamin D deficiency, unspecified; K25.9 Gastric ulcer, unspecified as acute or chronic, without hemorrhage or perforation
CPT/HCPCS: 36415; 80053; 80061; 82306; 82607; 84443; 85025

== ENCOUNTER → 2025-02-17 14:52 | Outpatient (REF) | payer MEDICARE, OTHER, SELFPAY | LOC: RCS 14:52 | PROVIDERS: ATTENDING PHYSICIAN Thoracic Surgery (Cardiothoracic Vascular Surgery); FAMILY PHYSICIAN Family Medicine | DX: I71.21 Aneurysm of the ascending aorta, without rupture (principal) | CPT/HCPCS: 71250; 93306 ==